=== PATIENT | female | born 1985 | race Caucasian/White ===

== ENCOUNTER 2023-08-29 10:44 | Emergency (ER) | payer OTHER, SELFPAY ==
[2023-08-29 10:59] VITALS: BP 142/87; PULSE 71; O2SAT 96
[2023-08-29 11:05] VITALS: BP 114/67; PULSE 65; RESP 18; TEMP 36.4; O2SAT 97; BMI 21.0
[2023-08-29 11:09] VITALS: BP 114/67; PULSE 65; RESP 18; TEMP 36.4; O2SAT 97
[2023-08-29 11:21] VITALS: PULSE 75; RESP 24; O2SAT 98
--- NOTE | 2023-08-29 11:30 | PC.NURSE ---
Addiction medicine at bedside.
[2023-08-29] MEDS: Naloxone HCl Nasal TAKE HOME 4 MG SPRAY 8 MG NOSTRILALT (11:50)
[2023-08-29 11:54] LABS: UPreg QC Valid YES; Urine Pregnancy NEGATIVE (NEGATIVE)
--- OUTSIDE RECORDS SUMMARY | 2023-08-29 11:55 | XMS_ITS | Continuity of Care Document ---
Author Name Unknown Organization [facility] ter Address [address] [place] [id number]- Care Team Providers Care Bottle Tester Name Role Phone Mario Alberto HEATING EQUIPMENT INSTALLER, Cindy Hassan Primary Care Physician ( [phone] [place] [facility] [place] - 08/22/[address] [address]- [facility] Attending Physician: Not on Staff, Attending MD Allergies, Adverse Reactions, Alerts Substance Reaction Severity Status NKA Active Immunizations Given and Recorded Vaccine Date Status Refusal Reason tetanus/diphtheria/pertussis, acel(Tdap) 1 03/03/18 Given 1Result Comment: [03/03/2018] [facility] [id number] 01 Medications ranitidine 150 mg oral tablet 1 tablet = 150 mg, By Mouth, 2 times a day, 30 to 60 minutes before meals, # 60 tablet, 3 Refills, Maintenance, 03/03/18 12:50:38 EDT, Tablet Start Date: 03/03/18 Stop Date: 07/01/18 Status: Ordered Social History Social History Type Response Smoking Status Current some day smo ker entered on: 03/03/18 Sex
--- OUTSIDE RECORDS SUMMARY | 2023-08-29 11:55 | XMS_ITS | Continuity of Care Document ---
Author Name Unknown Organization [facility] [address] Address [address] [place] [address]- Care Team Providers Care Director [place] Name Role Phone Mario Alberto ASSISTANT CUSTOMER SERVICE MANAGER, Cindy Hassan Primary Care Physician Encounter [facility] Date(s): 08/15/19 - 08/25/19 [facility] [address] [place] [address]- [facility] Attending Physician: Admtr, Arya Admitting Physician: Admtr, ArRoland Referring Physician: Admtr, [id number] Allergies, Adverse Reactions, Alerts Substance Reaction Severity Status NKA Active Immunizations Given and Recorded Vaccine Date Status Refusal Reason tetanus/diphtheria/pertussis, acel(Tdap) 1 03/03/18 Given 1Result Comment: [03/03/2018] [facility] [id number] 01 Medications ranitidine 150 mg oral [...]
--- OUTSIDE RECORDS SUMMARY | 2023-08-29 11:55 | XMS_ITS | Continuity of Care Document ---
Author Name Unknown Organization [facility] Address [address] [place] [address]- Care Team Providers Care Clinical Courier Name Role Phone Mario Alberto TECHNICAL EDUCATION TEACHER, Cindy Hassan Primary Care Physician Encounter [facility] Date(s): 08/15/19 - 08/22/19 [facility] [address] [place] [address]- [facility] Attending Physician: Not on Staff, Attending MD Allergies, Adverse Reactions, Alerts Substance Reaction Severity Status NKA Active Immunizations Given and Recorded Vaccine Date Status Refusal Reason tetanus/diphtheria/pertussis, acel(Tdap) 1 03/03/18 Given 1Result Comment: [03/03/2018] [facility] [id number] 842 01 Medications ranitidine 150 mg oral tablet 1 tablet = 150 mg, By Mouth, 2 times a day, 30 to 60 minutes before meals, # 60 tablet, 3 Refills, Maintenance, 03/03/18 12:50:38 EDT, Tablet Start Date: 03/03/18 Stop Date: 07/01/18 Status: Ordered Social History Social History Type Response Smoking Status Current some day [facility] entered on: 03/03/18 Sex
[2023-08-29 12:01] LABS: Amphetamine Screen Urine Not Detected (Not Detect); Barbiturates, Urine Not Detected (Not Detect); Benzodiazepines Screen Urine Not Detected (Not Detect); Cannabinoid Screen Urine Not Detected (Not Detect); Cocaine Screen Urine POSITIVE (Not Detect); Fentanyl, urine Not Detected (Not Detect); Opiate Screen Urine Not Detected (Not Detect); Phencyclidine Screen Urine Not Detected (Not Detect)
--- NOTE | 2023-08-29 12:02 | ED.OVERDOSE ---
HPI - Overdose General Chief Complaint: Overdose Stated Complaint: OD,NARCAN PRIOR TO EMS W/GOOD RESULT PER EMS Time Seen by Provider: 08/29/23 10:53 Source: patient Limitations: no limitations History of Present Illness HPI Narrative: 37 yo female who sniffs cocaine denies opiate or IVDA use reportedly used cocaine with boyfriend then became unresponsive they carry narcan and boyfriend had to give 8mg IN narcan with good effect. She was apneic and foaming at the mouth. EMS notes she was awake and appropriate MD complaint: accidental overdose Onset (ago): minute(s) (FEED ADVISER) Timing confirmed by: spouse Context: Accidental Overdose: wanted to get high Treatments Prior to Arrival: narcan (8mg IN) Related Data Allergies Allergy/AdvReac Type Severity Reaction Status Date / Time No Known Allergies Allergy Verified 08/29/23 11:01 [No Known Allergies*] Review of Systems Review of Systems: Constitutional : No Fever, No Chills, No Fatigue ENT/Mouth : No sore throat, No Rhinorrhea Eyes: No Eye Pain, No Swelling, No Redness Cardiovascular : No Chest Pain, No SOB, No Dyspnea on Exertion Respiratory : No Cough, No Sputum Gastrointestinal : No Nausea, No Vomiting, No Diarrhea, No abdominal Pain Genitourinary : No Dysuria, No Urinary Frequency, No Hematuria, Musculoskeletal : No joint pain, No Myalgias, No Joint Swelling Skin : No Skin Lesions, No rash Neuro : No Weakness, No Numbness, No Dizziness, no Headache Psych : No Anxiety/Panic, No Depression All other systems reviewed and are negative [facility] Past Medical History Attestation statement: The following information was validated with the patient. Medical History Cocaine abuse Social History Social History (Updated 08/29/23 @ 12:06 by Sarah Nichols DO) Patient Tobacco Use Status: Current someday Tobacco user Use of substances other than those prescribed or required for medical reasons: Yes Substance Use Type: Crack/Cocaine Last Used Substance: Just Prior to Admission Advance Directives: No Advance Directives Information Provided: No Patient : No Physical Exam Vital Signs: Vital Signs: Last Vital Signs Temp 97.5 F 08/29/23 11:09 Pulse 70 08/29/23 12:26 Resp 19 08/29/23 12:26 BP 114/67 08/29/23 11:09 Pulse Ox 98 08/29/23 12:26 O2 Del Method Room Air 08/29/23 12:26 BMI result Body Mass Index 21.0 Appearance: Alert. Oriented X3. No acute distress. Eyes: Pupils equal, round and reactive to light. ENT: Pharynx normal. atraumatic Neck: Normal inspection. Neck supple. CVS: Normal heart rate and rhythm. Pulses normal. Respiratory: No respiratory distress. Breath sounds normal. Abdomen: Soft and nontender. Skin: Skin warm and dry. Normal skin color. Normal skin turgor. Extremities: No lower extremity edema. no noted track armendariz Neuro: Oriented X 3. No motor deficit. No sensory deficit. Course Course Course Narrative: obs x 1 hour and 50 minutes no need for repeat narcan awake and alert wants to go home Medications Administered Discontinued Medications Generic Name Dose Route Start Last Admin Trade Name Freq PRN Reason Stop Dose Admin Naloxone HCl 8 mg 08/29/23 11:55 08/29/23 11:50 Naloxone Hcl Nasal Take Home 4 Mg [place] NOSTRILALT 08/29/23 11:56 8 mg ONCE ONE Administration Medical Decision Making Medical Decision Making [facility] Narrative: 37 yo female snorting cocaine with boyfriend reportedly then overdose and required narcan she was awake and alert with EMS - she has no seizure hx no seizure reported no headache she is asking to leave now did offer addiction medicine who saw her and drug screen. at this time will give narcan to go and precautions to return. Differential Diagnosis Differential Diagnoses: The differential diagnosis associated with the presentation includes substance abuse, seizure Admission/Observation Consideration of admission/observation: Escalation of care including admission/observation considered patient wants no labs, refusing blood sugar, will not stay Lab Data [facility] Lab Attestation statement: I reviewed the patient's lab results. Labs: Lab Results 08/29/23 Range/Units 11:40 Urine Test NEGATIVE (NEGATIVE) Urine Opiates Screen Not Detected (Not Detect) Urine Fentanyl Screen Not Detected (Not Detect) Ur Barbiturates Screen Not Detected (Not Detect) Ur Phencyclidine Scrn Not Detected (Not Detect) Ur Amphetamines Screen Not Detected (Not Detect) U Benzodiazepines Scrn Not Detected (Not Detect) Urine Cocaine Screen POSITIVE H (Not Detect) U Marijuana (THC) Screen Not Detected (Not Detect) Prescription Management I considered prescription management with: Other Discharge Plan Discharge Clinical Impression: Cocaine abuse Patient Disposition: Home, Self-Care Instructions: Cocaine Abuse (ED) Additional Instructions: you only tested positive for cocaine. it is hard to say what happened at this time if you have any other episodes or fainting please return and seek medical care. Interventions: ED Discharge Assessment Last Done: 08/29/23 12:52 Discharge Date/Time: 08/29/23 12:53
[2023-08-29 12:26] VITALS: PULSE 70; RESP 19; O2SAT 98
--- NOTE | 2023-08-29 12:26 | PC.NURSE ---
Pt resting comfortably on stretcher sating 98% on RA, RR 19.
--- NOTE | 2023-08-29 13:03 | HO.SUDE ---
Met with pt in ED13 after pt presented via EMS after overdose. Pt had been given Narcan x 2 by boyfriend with positive effect. T/w met with boyfriend and pt to discuss substance use and offer recovery support. Pt laying in bed, awake, alert, easily engages in conversation. Pt and boyfriend report using cocaine, IN, approx once weekly. Pt reports they bought 1 gram and used some last night without incident. Boyfriend reports approx 5-10 mins after pt used cocaine this morning ( 1 line , IN) she became unresponsive to sternal rub so he administered Narcan. Pt reports she does not use opioids. Pt and boyfriend report they always utilize fentanyl test strips prior to using cocaine, the product they tested was negative. Pts UDS also only positive for cocaine. Discussed continuation of harm reduction. Pt denies the need for recovery support at this time. Pt and boyfriend deny other questions or concerns.
== END 2023-08-29 12:53 | disposition home or self-care (01) ==
PROVIDERS: Emergency Provider Emergency Medicine
DX: R06.81 Apnea, not elsewhere classified (principal); F14.10 Cocaine abuse, uncomplicated; K11.7 Disturbances of salivary secretion; K13.70 Unspecified lesions of oral mucosa
CPT/HCPCS: 80307; 81025; 99284